=== PATIENT | male | born 1975 | race Caucasian/White ===

== ENCOUNTER 2018-11-25 02:25 | Emergency (ER) | payer SELFPAY ==
[~2018-11-25] VITALS: Ht 175.3 cm; Wt 128.0 kg
[2018-11-25 02:30] VITALS: Ht 175.3 cm; Wt 128.0 kg
[2018-11-25] MEDS ORDERED: ONDANSETRON 4 MG INJ IV STA (03:19)
[2018-11-25] MEDS ORDERED: HYDROmorphONE 1 MG/ML SYG IV STA (03:19)
--- NOTE | 2018-11-25 05:10 | ERD ---
ER Documentation Chief Complaint Chief Complaint Pt reports RUQ pain since 1430, clonidine 0.1mg, atarax, and zantac HPI This 43-year-old male complains of right upper quadrant pain onset 230 this afternoon. He took some Mylanta without relief. The pain somewhat radiates to the right upper back no chest pain shortness of breath no vomiting or diarrhea. He was seen in the clinic earlier today and they told him it might be his g allbladder and to go to the ER. Currently his pain is mild to moderate. ROS All systems reviewed and are negative except as per history of present illness. Medications Home Meds Active Scripts Dicyclomine HCl (Dicyclomine HCl) 10 Mg Capsule, 20 MG PO TID PRN for ABDOMINAL CRAMPING, #20 CAP Prov:SUBHASH CANTU DO 11/25/18 Hydrocodone/Acetaminophen ([place] 5-325 Tablet) 1 Each Tablet, 1 TAB PO Q6H PRN for PAIN, #16 TAB Prov:SUBHASH CANTU DO 11/25/18 Allergies Allergies: Coded Allergies: No Known Allergy (Unverified , 11/25/18) PMhx/Soc Medical and Surgical Hx: pt denies Medical Hx, pt denies Surgical Hx Hx Alcohol Use: No Hx Substance Use: No Hx Tobacco Use: No Smoking Status: Never smoker FmHx Family History: No coronary disease Physical Exam Vitals Vital Signs Date Temp Pulse Resp B/P (MAP) Pulse Ox O2 O2 Flow FiO2 Time Delivery Rate 11/25/18 82 18 163/92 100 Room Air 04:39 (115) 11/25/18 98.6 89 16 182/89 100 Room Air 02:43 (120) 11/25/18 98.6 62 16 194/99 100 02:30 (130) Physical Exam Const: Well-developed, well-nourished Head: Atraumatic, normocephalic Eyes: Normal Conjunctiva, PERRLA, EOMI, normal sclera, no nystagmus ENT: Normal External Ears, Nose and Mouth, moist mucus membranes. Neck: Full range of motion. No meningismus, no lymphadenopathy. Resp: Clear to auscultation bilaterally, no wheezing, rhonchi, rales Cardio: Regular rate and rhythm, no murmurs, S1 S2 present Abd: Soft, mild right upper quadrant pain, non distended. Normal bowel sounds, no guarding or rebound, no pulsitile abdominal masses or bruits Skin: No petechiae or rashes, no ecchymosis , no maculopapular rash Back: No midline or flank tenderness Ext: No cyanosis, or edema, FROM x 4, normal inspection, neurovascularly intact x 4 Neur: Awake and alert, STR 5/5 x 4, sensation intact x 4, no focal findings, cerebellum intact Psych: Normal Mood and Affect Result Diagram: 11/25/188 11/25/18 0258 Results 24 hrs Laboratory Tests Test 11/25/18 02:58 White Blood Count 12.1 10^3/ul Red Blood Count 5.88 10^6/ul Hemoglobin 16.7 g/dl Hematocrit 49.0 % Mean Corpuscular Volume 83.3 fl Mean Corpuscular Hemoglobin 28.4 pg Mean Corpuscular Hemoglobin Concent 34.1 g/dl Red Cell Distribution Width 13.3 % Platelet Count 272 10^3/UL Mean Platelet Volume 11.5 fl Immature Granulocytes % 0.400 % Neutrophils % 83.9 % Lymphocytes % 10.2 % Monocytes % 4.8 % Eosinophils % 0.0 % Basophils % 0.7 % Nucleated Red Blood Cells % 0.0 /100WBC Immature Granulocytes # 0.050 10^3/ul Neutrophils # 10.2 10^3/ul Lymphocytes # 1.2 10^3/ul Monocytes # 0.6 10^3/ul Eosinophils # 0.0 10^3/ul Basophils # 0.1 10^3/ul Nucleated Red Blood Cells # 0.0 10^3/ul Sodium Level 144 mmol/L Potassium Level 4.2 mmol/L Chloride Level 105 mmol/L Carbon Dioxide Level 28 mmol/L Anion Gap 11 Blood Urea Nitrogen 12 mg/dl Creatinine 1.07 mg/dl Est Glomerular Filtrat Rate mL/min > 60 mL/min Glucose Level 146 mg/dl Calcium Level 10.5 mg/dl Total Bilirubin 0.6 mg/dl Direct Bilirubin 0.00 mg/dl Indirect Bilirubin 0.6 mg/dl Aspartate Amino Transf (AST/SGOT) 33 IU/L Alanine Aminotransferase (ALT/SGPT) 50 IU/L Alkaline Phosphatase 82 IU/L Troponin I < 0.012 ng/ml Total Protein 8.0 g/dl Albumin 4.9 g/dl Globulin 3.10 g/dl Albumin/Globulin Ratio 1.58 Lipase 45 U/L Current Medications Medications Dose Sig/Lucia Start Time Status Last (Trade) Ordered Route PRN Stop Time Admin Dose Reason Admin 1 mg ONCE STAT 11/25/18 DC 11/25/18 Hydromorphone IV 03:19 03:34 HCl 11/25/18 03:20 (Dilaudid) Ondansetron 4 mg ONCE STAT 11/25/18 DC 11/25/18 HCl (Zofran IV 03:19 03:34 Inj) 11/25/18 03:20 Procedures/MDM Ultrasound demonstrates multiple gallstones in the gallbladder with gallbladder sludge. Liver function tests are normal. He is resting comfortably. Will discharge home pending his CT scan abdomen is okay with [place] and [place] and follow-up with general surgery Patient: TRUDY SELBY : 1975 Age: 43 Sex: M MR #: [id number] DOS: 11/25/189 Ordering MD: SUBHASH CANTU DO Location: E/R Room/Bed: PROCEDURE: CT Abdomen and Pelvis without contrast. CLINICAL INDICATION: Abdominal pain TECHNIQUE: CT scan of the abdomen and pelvis without contrast was performed on a multi-detector high-resolution CT scanner. Coronal and sagittal reformatted images obtained from the axial source images. Images were reviewed on a high- resolution PACS workstation. Exam CTDI 23.67 mGy Exam DLP 1714.27 mGy-cm DICOM images are available. One or more of the following dose reduction techniques were utilized: 1.) Automated exposure control 2.) Adjustment of the mA +/- kV according to patient's size 3.) Use of iterative reconstruction technique. COMPARISON: None FINDINGS: CT abdomen: LOWER THORAX: Lung bases are clear. LIVER AND GALLBLADDER: The liver is unremarkable. There are multiple lucent stones within the gallbladder. No visible pericholecystic fluid. SPLEEN: Normal. PANCREAS: Normal. ADRENAL GLANDS: Normal. KIDNEYS: Kidneys are symmetric in size and morphology. No hydronephrosis or renal calculus. Bilateral ureters are unremarkable. VASCULATURE: Abdominal aorta is normal in caliber. LYMPH NODES: No significant retroperitoneal or mesenteric lymphadenopathy. BOWEL AND MESENTERY: Stomach and small bowel are unremarkable. A normal appendix is identified. The large bowel is unremarkable. No inflammatory changes in the mesentery. CT pelvis: The urinary bladder appears normal. There is no free fluid in the pelvis. No significant pelvic lymphadenopathy. Bones: Small marginal osteophytes in the lower thoracic and lumbar spine, regional bones otherwise appear intact. Superficial soft tissues are unremarkable. IMPRESSION: 1. Multiple lucent gallstones. No visible pericholecystic fluid. 2. No additional acute process in the imaged abdomen or pelvis. 3. Normal appendix. No pelvic free fluid. RPTAT: [facility] Physician Andrew Date Time Electronically viewed and signed by Physician Andrew on 11/25/2018 0 5:40 xB/ CC: SUBHASH CANTU DO [id number] [address] [place] [address] Radiology Main Line: [phone] DIAGNOSTIC IMAGING REPORT Patient: TRUDY SELBY : 1975 Age: 43 Sex: M MR #: [id number] DOS: 11/25/18 0319 Ordering MD: SUBHASH CANTU DO Location: E/R Room/Bed: PROCEDURE: Ultrasound abdomen complete CLINICAL INDICATION: abdominal pain TECHNIQUE: Bailey scale, color flow and Doppler ultrasound images of the abdomen. COMPARISON: None FINDINGS: Pancreas: Obscured by shadowing bowel gas. Liver: Liver demonstrates normal size and echotexture. No parenchymal lesions are identified. Normal directional flow toward the liver is demonstrated in the main portal vein. Gallbladder: There are multiple mobile gallstones. No significant thickening of the gallbladder wall and no pericholecystic fluid. Soft Sugar Cutter reports negative De Leon's sign. Biliary system: There is no significant dilatation of the intrahepatic or extrahepatic biliary system. Common bile duct measures 3 mm. Right Kidney: Measures 11.7 cm in length. No hydronephrosis, intrarenal calculus or abnormal perinephric fluid. Additional findings: None IMPRESSION: 1. Multiple mobile gallstones. No wall thickening or pericholecystic fluid to indicate acute inflammation. 2. Pancreas obscured by shadowing bowel gas. RPTAT: [facility] Sarina Tan Physician Date Time Electronically viewed and signed by Sarina Tan Physician on 11/25/2018 05:41 xB/ CC: SUBHASH CANTU DO [id number] Departure Diagnosis: Primary Impression: Gall stones Condition: Stable SUBHASH CANTU DO Nov 25, 2018 05:10
[2018-11-25] MEDS ORDERED: DICY10CA40 PO (05:18)
[2018-11-25] MEDS ORDERED: HYDR-4011 PO (05:18)
[2018-11-25 06:30] VITALS: BP 153/88; PULSE 58; RESP 17
== END 2018-11-25 06:31 | disposition home or self-care (01) ==
LOC: E/R 02:25
DX: K80.20 Calculus of gallbladder without cholecystitis without obstruction (principal)
CPT/HCPCS: 36415; 74176; 76705; 80053; 83690; 84484; 85025; 96374; 96375; 99285; J1170; J2405